=== PATIENT | male | born 1980 | race Asian ===

== ENCOUNTER 2017-01-04 01:18 | Emergency (ER) | payer OTHER ==
[~2017-01-04] VITALS: Ht 165.1 cm; Wt 59.0 kg
[2017-01-04 01:20] VITALS: BP 115/84; PULSE 102; RESP 18; TEMP 97.4; O2SAT 97
--- NOTE | 2017-01-04 01:20 | NUR ---
Patient to ER bed 4 to gown for evaluation. Side rails up. Report given to Jefferson JIMENEZ.
--- NOTE | 2017-01-04 01:30 | NUR ---
Pt presents to ED with c/o epigastric abdomen pain, 6/10, comes and goes, with nausea, denies any episode of vomitting. A&Ox4, denies SOB or chestpain, skin intact, Bowel sound x4. Will continue to monitor
--- NOTE | 2017-01-04 01:45 | NUR ---
MD Loyd at bedside examining pt
[2017-01-04 02:18] LABS: BILIRUBIN,URINE NEGATIVE (NEGATIVE); BLOOD, URINE NEGATIVE (NEGATIVE); CLARITY/URINE CLEAR (CLEAR); COLOR,URINE YELLOW (YELLOW); GLUCOSE,URINE NEGATIVE (NEGATIVE); KETONES,URINE NEGATIVE (NEGATIVE); LEUKOCYTE ESTERASE ,URINE NEGATIVE (NEGATIVE); NITRITE, URINE NEGATIVE (NEGATIVE); PH,URINE 5.5 (5.0-8.0); PROTEIN URINE NEGATIVE (NEGATIVE); UROBILINOGEN,URINE 0.2 (0.2-1.0)
[2017-01-04 02:45] LABS: BASOPHILS % (AUTO) 0.5 % (0.0-2.0); EOSINOPHILS # (AUTO) 0.2 K/uL (0.0-0.4); EOSINOPHILS % (AUTO) 2.9 % (0.0-4.0); HEMATOCRIT 39.8 % (36-54); HEMOGLOBIN 13.7 g/dL (14.0-18.0); LYMPHOCYTES # (AUTO) 0.9 K/uL (1.0-5.5); LYMPHOCYTES % (AUTO) 15.2 % (20.5-51.5); MEAN CORPUSCULAR HEMOGLOBIN 33 pg (27-31); MEAN CORPUSCULAR HGB CONC 34 % (32-36); MEAN CORPUSCULAR VOLUME 95 fL (79.0-98.0); MONOCYTES % (AUTO) 17.8 % (1.7-9.3); NEUTROPHILS # (AUTO) 3.7 K/uL (1.8-7.7); NEUTROPHILS % (AUTO) 63.6 % (40.0-70.0); PLATELET COUNT (AUTO) 249 K/uL (130-430); RED CELL DISTRIBUTION WIDTH 11.3 % (9.0-15.0); WHITE BLOOD COUNT (AUTO) 5.8 K/uL (4.8-10.8)
[2017-01-04 02:54] LABS: PROTHROMBIN TIME 10.6 SECS (9.5-12.5)
[2017-01-04 02:58] LABS: CALCIUM 8.4 mg/dL (8.4-11.0); CREATININE 0.96 mg/dL (0.55-1.30); POTASSIUM 3.4 mmol/L (3.5-5.1)
[2017-01-04] MEDS ORDERED: NACL 0.9% 1,000 ML IV ONE (03:00)
[2017-01-04 03:03] LABS: ALBUMIN 3.6 g/dL (3.4-4.8); TOTAL BILIRUBIN 0.4 mg/dL (0.0-1.0); TOTAL PROTEIN, SERUM 7.6 g/dL (6.4-8.3)
[2017-01-04 03:35] VITALS: BP 110/78; PULSE 92; RESP 18; TEMP 97.4; O2SAT 98
--- NOTE | 2017-01-04 03:35 | NUR ---
Patient given written and verbal discharge instructions and verbalizes understanding. ER MD discussed with patient the results and treatment provided. Patient in stable condition. ID arm band removed. IV catheter removed intact and dressing applied, no active bleeding. Rx of imodium, ciprofloxacin given. Patient educated on pain management and to follow up with PMD. Pain Scale 0/10. Opportunity for questions provided and answered.
== END 2017-01-04 03:35 | disposition home or self-care (01) ==
LOC: SED 01:18
DX: A08.4 Viral intestinal infection, unspecified (principal)
CPT/HCPCS: 36415; 74020; 80053; 81003; 85025; 85610; 85730; 96360; 99285; J7030